=== PATIENT | female | born 1960 | race Caucasian/White ===

== ENCOUNTER 2020-01-04 09:45 | Outpatient (RCR) | payer BC, SELFPAY | END 2020-01-14 23:59 | disposition home or self-care (01) | LOC: SPT 09:45 | PROVIDERS: PCP Family Medicine; Referring Provider Chiropractor; Visit Provider Chiropractor | DX: M25.512 Pain in left shoulder (principal) | CPT/HCPCS: 97110; 97161 ==

== ENCOUNTER 2020-01-26 09:24 | Outpatient (RCR) | payer BC, SELFPAY | END 2020-02-14 23:59 | disposition home or self-care (01) | LOC: SPT 09:24 | PROVIDERS: PCP Family Medicine; Referring Provider Chiropractor; Visit Provider Chiropractor | DX: M25.512 Pain in left shoulder (principal) | CPT/HCPCS: 97110 ==

== ENCOUNTER 2020-02-15 06:00 | Outpatient (RCR) | payer BC, SELFPAY | END 2020-03-15 23:59 | disposition home or self-care (01) | LOC: SPT 06:00 | PROVIDERS: PCP Family Medicine; Referring Provider Chiropractor; Visit Provider Chiropractor | DX: M25.512 Pain in left shoulder (principal) | CPT/HCPCS: 97110 ==